=== PATIENT | male | born 1940 | race Caucasian/White ===

== ENCOUNTER 2021-08-15 09:15 | Observation (INO) | payer MEDICARE, OTHER, SELFPAY ==
[2021-08-15] VITALS (12 sets, daily range): BP systolic 137–159; BP diastolic 67–77; PULSE 61–80; RESP 16–19; TEMP 36.4–38.7; O2SAT 95–99; BMI 21.4
--- NOTE | 2021-08-15 09:17 | DI.RAD.S_ITS ---
PROCEDURE: XR CHEST 1V INDICATIONS: cough TECHNIQUE: One view of the chest was acquired. COMPARISON: [facility], CR, XR CHEST 1 VIEW, 04/28/2019, 13:23. [facility], CR, XR CHEST 1 VIEW, 03/27/2019, 22:47. [facility], CR, XR CHEST 1 VIEW, 12/25/2017, 1:51. [facility], CT, CT ANGIO CHEST ABDOMEN PELVIS, 04/28/2019, 14:20. FINDINGS: Surgical changes and devices: Epigastric clips are seen. Lungs and pleura: An incomplete inspiratory result is noted, causing a crowded appearance to the lung markings. No focal infiltrates are seen. No pneumothorax or significant pleural effusions are seen. Mediastinum: The cardiac contours are within normal limits. The aorta demonstrates calcification and tortuosity. Bones and chest wall: No suspicious bony lesions. Age-appropriate bony degenerative changes are seen. Overlying soft tissues appear unremarkable. IMPRESSION: Unremarkable portable chest, without focal infiltrates. Dictated by: Marc Ibanez M.D. on 08/15/2021 at 8:33 Approved by: Marc Ibanez M.D. on 08/15/2021 at 8:34
--- NOTE | 2021-08-15 09:20 | ED_ITS ---
HPI - Altered Mental Status General Chief Complaint: Neuro Symptoms/Deficit Stated Complaint: Diabetic with altered mental status Time Seen by Provider: 08/15/21 09:25 History of Present Illness HPI narrative: Patient brought in by ambulance from home. called to inform that patient had fallen yesterday and again this morning. Has been confused this morning. Last well known 9:00 a.m. last night. No slurred speech facial droop or limb weakness. Patient is not at baseline according to when EMS gave us report. Patient is diabetic. Blood sugar by EMS was elevated. Patient able to state his full name and date of . Blood sugar 397. Otherwise no recent illness reported to EMS by . Patient was diverted here from [place] because local hospital there was on diversion. Patient denies any head pain neck pain back pain abdominal pain chest pain or limb pain from his falls. Patient states only hurts on his right finger from the blood glucose done by the EMS crew. Patient in no distress. Does follow instructions.. Is not oriented to day or time or location. Difficulty with urine catheter. Related Data Home Medications Medication Instructions Recorded Confirmed amlodipine 5 mg tablet 5 mg PO DAILY 08/15/21 08/15/21 atorvastatin 10 mg tablet 10 mg PO DAILY 08/15/21 08/15/21 citalopram 20 mg tablet 20 mg PO DAILY 08/15/21 08/15/21 loperamide 2 mg capsule 2 mg PO DAILY PRN 08/15/21 08/15/21 (Anti-Diarrheal (loperamide)) memantine 10 mg tablet 10 mg PO BID 08/15/21 08/15/21 omeprazole 20 mg capsule,delayed 20 mg PO DAILY 08/15/21 08/15/21 release prazosin 1 mg capsule 1 mg PO DAILY 08/15/21 08/15/21 quetiapine 25 mg tablet 12.5 mg PO BEDTIME 08/15/21 08/15/21 rivastigmine tartrate 1.5 mg 3 mg PO DAILY 08/15/21 08/15/21 capsule aspirin 81 mg tablet,delayed 81 mg PO DAILY 08/16/21 08/16/21 release cyanocobalamin (vitamin B-12) 100 100 mcg PO DAILY 08/16/21 08/16/21 mcg tablet insulin glargine 100 unit/mL (3 20 unit SUBCUT BEDTIME 08/16/21 08/16/21 mL) subcutaneous pen (Lantus Solostar U-100 Insulin) iron-vit C-vit Q85-xwcov acid 100 1 tab PO Q OTHER DAY 08/16/21 08/16/21 mg-250 mg-25 mcg-1 mg tablet (Iron) [id number] 5 cap PO TIDWMEAL 08/16/21 08/16/21 6,000-19,000-30,000 unit capsule,delayed rel (Creon) Previous Rx's Medication Instructions Recorded amoxicillin 875 mg-potassium 1 tab PO BID #14 tab 08/17/21 clavulanate 125 mg tablet (Augmentin) Allergies Allergy/AdvReac Type Severity Reaction Status Date / Time No Known Drug Allergies Allergy Verified 08/15/21 09:42 Review of Systems Review of Systems Narrative: GENERAL: Denies chills, fatigue, malaise, fever, sweats. HEENT: Denies sinus pain, ear pain, sore throat RESPIRATORY: Denies dyspnea, cough CARDIOVASCULAR: Denies chest pain, palpitations GASTROINTESTINAL: Denies nausea, vomiting, abdominal pain : Denies dysuria, frequency, hematuria MUSCULOSKELETAL: denies muscle or bony pain SKIN: Denies rash, skin lesions NEUROLOGIC: Denies weakness, numbness, negative slurred speech or facial droop, is confused to time and place and event Psych: Is not combative. ROS Unobtainable: All systems reviewed & are unremarkable except as noted in HPI and below Patient History Social History (System 08/15/21 @ 09:42 by Juanita Stern) household members: spouse Smoking Status: Never smoker alcohol intake: never Exam Narrative Exam Narrative: GENERAL: in no distress, not toxic not dyspneic HEAD: Normocephalic. Atraumatic, nontender face and skull, no skin injury. EYES: Pupils equal round No scleral icterus. ENT: Mucous membranes dry. No intraoral injury. NECK: Trachea midline. No midline tenderness of the cervical spine. CARDIOVASCULAR: Regular rate and rhythm without murmurs RESPIRATORY: Clear to auscultation. Breath sounds equal bilaterally. No wheezes, rales, or rhonchi. GASTROINTESTINAL: Abdomen soft, non-tender EXTREMITIES: No gross deformities. Grossly nontender bilateral shoulders elbows wrists pelvis hips knees and ankles. BACK: No flank tenderness. NEURO: Awake and alert and oriented to self and date of only. Clear speech. No facial droop light touch intact to bilateral face hands and legs. Able to follow commands and tube handler equally and raises both legs. SKIN: Warm and dry PSYCH: Not anxious, is cooperative, not combative Initial Vital Signs Initial Vital Signs: Vital Signs Temperature 101.6 F H 08/15/21 09:18 Pulse Rate 80 08/15/21 09:18 Respiratory Rate 18 08/15/21 09:18 Blood Pressure 157/74 H 08/15/21 09:18 Pulse Oximetry 99 08/15/21 09:18 Course Course Course Narrative: Daughter at bedside. Mary. She is a nurse. Reviewed with her results with patient. Liver enzymes are at baseline. Does agree for admit. IV antibiotics and fever control. 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 Has bouts of elevated enzymes for the liver with fever in the past. Patient is full code Orders Ordered: Discontinued Medications Acetaminophen (Acetaminophen 325 Mg Tablet) 650 mg PO Q6HR PRN PRN Reason: Fever/Mild Pain (1-3) Last Admin: 08/16/21 21:02 Dose: 650 mg Documented by: Admin: 08/15/21 23:25 Dose: 650 mg Documented by: DHARA Lipase/Protease/Amylase (Lipase/Protease/Amylase 12/20/23 Cap) 5 cap PO TIDWM [facility] Last Admin: 08/17/21 12:12 Dose: 5 cap Documented by: Admin: 08/17/21 08:32 Dose: 5 cap Documented by: Admin: 08/16/21 17:02 Dose: 5 cap Documented by: Admin: 08/16/21 12:10 Dose: 5 cap Documented by: Admin: 08/16/21 08:26 Dose: 5 cap Documented by: Admin: 08/15/21 17:10 Dose: 5 cap Documented by: DHARA Aspirin (Aspirin Ec 81 Mg Tablet) 81 mg PO DAILY [facility] Last Admin: 08/17/21 10:11 Dose: 81 mg Documented by: Admin: 08/16/21 08:26 Dose: 81 mg Documented by: JOSE Atorvastatin Calcium (Atorvastatin 20 Mg Tablet) 10 mg PO BEDTIME [facility] Last Admin: 08/16/21 21:00 Dose: 10 mg Documented by: Admin: 08/15/21 23:26 Dose: 10 mg Documented by: DHARA Bisacodyl (Bisacodyl 10 Mg Supp) 10 mg [place] BID PRN PRN Reason: Constipation Citalopram Hydrobromide (Citalopram 10 Mg Tablet) 20 mg PO DAILY [facility] Last Admin: 08/17/21 10:12 Dose: 20 mg Documented by: Admin: 08/16/21 08:26 Dose: 20 mg Documented by: JOSE Dextrose (Dextrose 50 % In Water 25 Gm/50 Ml Syringe) 25 gm IV PRN PRN; Protocol PRN Reason: Hypoglycemia Enoxaparin Sodium (Enoxaparin 40 Mg/0.4 Ml Syringe) 40 mg SUBCUT DAILY [facility] Last Admin: 08/17/21 10:13 Dose: 40 mg Documented by: Admin: 08/16/21 08:27 Dose: 40 mg Documented by: JOSE Haloperidol (Haloperidol 5 Mg/Ml Vial) 1 mg IV NOW ONE Stop: 08/15/21 14:44 Last Admin: 08/15/21 14:46 Dose: 1 mg Documented by: SHAYY Sodium Chloride (Normal Saline 0.9%) 1,000 mls @ 1,000 mls/hr IV BOLUS ONE Stop: 08/15/21 14:09 Last Infusion: 08/15/21 15:49 Dose: 0 mls/hr Documented by: Admin: 08/15/21 13:49 Dose: 1,000 mls/hr Documented by: PIOTR Piperacillin Sod/Tazobactam (Sod 4.5 gm/ Sodium Chloride) 100 mls @ 200 mls/hr IV NOW ONE Stop: 08/15/21 13:17 Last Infusion: 08/15/21 14:40 Dose: 0 mls/hr Documented by: Admin: 08/15/21 13:49 Dose: 200 mls/hr Documented by: PIOTR Lactated Ringer's (Lactated Ringers) 1,000 mls @ 100 mls/hr IV CONT [facility] Last Admin: 08/16/21 11:33 Dose: 100 mls/hr Documented by: Infusion: 08/16/21 11:33 Dose: 100 mls/hr Documented by: Admin: 08/16/21 01:54 Dose: 100 mls/hr Documented by: Infusion: 08/16/21 01:34 Dose: 100 mls/hr Documented by: Admin: 08/15/21 15:34 Dose: 100 mls/hr Documented by: DHARA Piperacillin Sod/Tazobactam (Sod 3.375 gm/ Sodium Chloride) 100 mls @ 25 mls/hr IV Q8H [facility] Last Infusion: 08/17/21 12:11 Dose: 0 mls/hr Documented by: Admin: 08/17/21 05:35 Dose: 25 mls/hr Documented by: Infusion: 08/17/21 03:04 Dose: 25 mls/hr Documented by: Admin: 08/16/21 23:04 Dose: 25 mls/hr Documented by: Infusion: 08/16/21 19:13 Dose: 25 mls/hr Documented by: Admin: 08/16/21 15:13 Dose: 25 mls/hr Documented by: Infusion: 08/16/21 11:29 Dose: 0 mls/hr Documented by: Admin: 08/16/21 05:39 Dose: 25 mls/hr Documented by: Infusion: 08/16/21 02:27 Dose: 25 mls/hr Documented by: Admin: 08/15/21 22:27 Dose: 25 mls/hr Documented by: MARCELO Ibuprofen (Ibuprofen 400 Mg Tablet) 400 mg PO NOW ONE Stop: 08/15/21 13:07 Last Admin: 08/15/21 13:48 Dose: 400 mg Documented by: PIOTR Influenza Virus Vaccine (Influenza Hd Vaccine 0.7 Ml Syringe) 0.7 ml IM .ONCE ONE Stop: 08/16/21 09:01 Last Admin: 08/17/21 10:12 Dose: 0.7 ml Documented by: JESI Insulin Glargine (Insulin Glargine 100 Unit/Ml 3ml Pen) 20 unit SUBCUT BEDTIME [facility] Last Admin: 08/16/21 21:02 Dose: 20 unit Documented by: MARCELO Cosigned by: ABBEY Admin: 08/15/21 21:00 Dose: Not Given Documented by: MARCELO Insulin Human Lispro (Insulin Lispro 100 Unit/Ml 3ml Vial) 0 unit SUBCUT ACHS [facility]; Protocol Last Admin: 08/17/21 11:46 Dose: 1 unit Documented by: JESI Neville by: RADHA Admin: 08/17/21 08:29 Dose: Not Given Documented by: Admin: 08/16/21 21:03 Dose: Not Given Documented by: Admin: 08/16/21 17:02 Dose: 1 unit Documented by: JESI Treadwelligned by: EN Admin: 08/16/21 12:10 Dose: 1 unit Documented by: JESI Neville by: EVERARDO Admin: 08/16/21 08:26 Dose: 1 unit Documented by: JOSE Neville by: JESI Admin: 08/15/21 21:00 Dose: Not Given Documented by: Admin: 08/15/21 17:11 Dose: 7 unit Documented by: DHARA Treadwelligned by: KASIA Insulin Human Lispro (Insulin Lispro 100 Unit/Ml 3ml Vial) 10 unit SUBCUT AC [facility] Last Admin: 08/17/21 11:45 Dose: 10 unit Documented by: JESI Neville by: RADHA Admin: 08/17/21 08:33 Dose: 10 unit Documented by: JESI Neville by: ELANA Admin: 08/16/21 17:03 Dose: 10 unit Documented by: JESI Neville by: EN Admin: 08/16/21 12:11 Dose: 10 unit Documented by: JESI Neville by: EVERARDO Admin: 08/16/21 08:27 Dose: 10 unit Documented by: JOSE Neville by: JESI Admin: 08/15/21 17:10 Dose: 10 unit Documented by: DHARA Neville by: KASIA Loperamide HCl (Loperamide 2 Mg Capsule) 2 mg PO DAILY [facility] Last Admin: 08/17/21 10:11 Dose: 2 mg Documented by: Admin: 08/16/21 08:26 Dose: 2 mg Documented by: JOSE Loperamide HCl (Loperamide 2 Mg Capsule) 2 mg PO DAILY PRN PRN Reason: Diarrhea Magnesium Hydroxide (Magnesium Hydroxide 30 Ml Udc) 30 ml PO DAILY PRN PRN Reason: Constipation Memantine (Memantine Hcl 5 Mg Tablet) 10 mg PO BID [facility] Last Admin: 08/17/21 10:11 Dose: 10 mg Documented by: Admin: 08/16/21 21:00 Dose: 10 mg Documented by: Admin: 08/16/21 08:26 Dose: 10 mg Documented by: Admin: 08/15/21 23:25 Dose: 10 mg Documented by: DHARA Ondansetron HCl (Ondansetron 4 Mg/2 Ml Inj) 4 mg IV Q8HR PRN PRN Reason: Nausea And Vomiting Pantoprazole Sodium (Pantoprazole Dr 20 Mg Tablet) 20 mg PO 0700 [facility] Last Admin: 08/17/21 06:34 Dose: 20 mg Documented by: Admin: 08/16/21 08:26 Dose: 20 mg Documented by: JOSE Prazosin HCl (Prazosin 1 Mg Capsule) 1 mg PO DAILY Pending sale to [facility] Admin: 08/17/21 10:14 Dose: 1 mg Documented by: Admin: 08/16/21 08:26 Dose: 1 mg Documented by: JOSE Quetiapine Fumarate (Quetiapine 25 Mg Tablet) 12.5 mg PO BEDTIME [facility] Last Admin: 08/16/21 21:01 Dose: 12.5 mg Documented by: Admin: 08/15/21 23:25 Dose: 12.5 mg Documented by: DHARA Sennosides (Sennosides 8.6 Mg Tablet) 17.2 mg PO BEDTIME [facility] Reevaluation(s) Reevaluation #1: Reviewed results with patient and daughter. They do agree for admit. Time: 13:22 Consultations Consultation #1: Spoke with hospitalist, dr campos, agrees for admit. Blood cultures started do wn here as well as antibiotics and fever control Time: 13:22 Vital Signs Vital signs: Vital Signs - 8 hr 08/15/21 09:18 08/15/21 12:27 08/15/21 12:30 Temperature 101.6 F H Pulse Rate 80 67 66 Respiratory Rate 18 19 17 Blood Pressure 157/74 H 141/77 H Pulse Oximetry 99 95 97 08/15/21 13:00 08/15/21 13:01 Temperature Pulse Rate 66 66 Respiratory Rate 19 17 Blood Pressure 151/72 H 149/75 H Pulse Oximetry 95 96 MDM - Altered Mental Status Differential Diagnosis Differential diagnosis: Likely altered mental status, dementia (Hepatic encephalopathy), hypoglycemia, hyponatremia, other (UTI/pneumonia/DKA) and sepsis Lab Data Result diagrams: 08/17/21 07:07 08/17/21 07:07 Labs: Lab Results 08/15/21 08/15/21 08/15/21 Range/Units 09:18 09:19 09:23 WBC (4.5-11.0) X10^3/uL RBC (4.5-5.9) X10^6/uL Hgb (13.5-17.5) g/dL Hct (41-53) % MCV (80-100) fL MCH (26-34) PG MCHC (30-36) % RDW (11.6-14.8) % Plt Count (150-400) X10^3/uL Neut % (Auto) (50-75) % Lymph % (Auto) (25-40) % [place] % (Auto) (3-14) % Eos % (Auto) (2-4) % Baso % (Auto) (0-2) % Neut # (Auto) (0361-0863) /uL Lymph # (Auto) (5814-8874) /uL [place] # (Auto) (0-900) /uL Eos # (Auto) (0-450) /uL Baso # (Auto) (0-100) /uL PT (10.1-12.7) SECONDS INR (0.9-1.3) APTT (26.4-36.2) SECONDS Sodium (137-145) mmol/L Potassium (3.4-5.1) mmol/L Chloride (98-107) mmol/L Carbon Dioxide (22-32) mmol/L BUN (9-20) mg/dL Creatinine (0.66-1.25) mg/dL Estimated GFR (>60) mL/min BUN/Creatinine Ratio (6-22) Glucose (80-110) mg/dL Hemoglobin A1c (4.0-6.0) % Lactate (0.7-2.1) mmol/L Calcium (8.4-10.2) mg/dL Iron (49-181) ug/dL TIBC (261-462) ug/dL % Saturation (20-50) % Transferrin (206-381) mg/dL Total Bilirubin (0.2-1.3) mg/dL AST (17-59) IU/L ALT (<50) IU/L Alkaline Phosphatase (38-126) U/L Ammonia (9-30) umol/L Total Creatine Kinase (55-170) U/L CK-MB (CK-2) CK-MB (CK-2) Rel Index Troponin I (0.01-0.034) ng/mL Total Protein (6.3-8.2) g/dL Albumin (3.5-5.0) g/dL Globulin (1.7-4.1) g/dL Albumin/Globulin Ratio (1.0-2.8) Procalcitonin 0.25 (<0.5) ng/mL TSH (0.47-4.68) uIU/mL Urine Color Yellow Urine Appearance Clear Urine pH 6.5 (4.5-8.0) Ur Specific [place] 1.015 (1.000-1.035) Urine Protein Negative (Negative) Urine Glucose (UA) 3+ H (Negative) g/dL Urine Ketones Negative (NEGATIVE) Urine Occult Blood Trace-intact (Negative) Urine Nitrate Negative (Negative) Urine Bilirubin Negative (NEGATIVE) Urine Urobilinogen 1.0 (0.2) E.U./dL Ur Leukocyte Esterase Negative (NEGATIVE) Urine RBC 0-1/hpf (0-5/HPF) Urine WBC 1-5/hpf (0-5/HPF) Urine Bacteria Occasional (0-1) (None) Ur Culture Indicated? Cult not indicated Ethyl Alcohol ( - 10) mg/dL Ketones (<0.27) mmol/L SARS-CoV-2 (PCR) Negative (Negative) 08/15/21 08/15/21 08/15/21 Range/Units 09:43 09:43 09:43 WBC 4.5 (4.5-11.0) X10^3/uL RBC 3.61 L (4.5-5.9) X10^6/uL Hgb 9.4 L (13.5-17.5) g/dL Hct 28.6 L (41-53) % MCV 79.3 L (80-100) fL MCH 26.0 (26-34) PG MCHC 32.8 (30-36) % RDW 16.7 H (11.6-14.8) % Plt Count 115 L (150-400) X10^3/uL Neut % (Auto) 87.7 H (50-75) % Lymph % (Auto) 5.2 L (25-40) % [place] % (Auto) 6.1 (3-14) % Eos % (Auto) 0.2 L (2-4) % Baso % (Auto) 0.8 (0-2) % Neut # (Auto) 3900 (4697-6691) /uL Lymph # (Auto) 200 L (7941-7668) /uL [place] # (Auto) 300 (0-900) /uL Eos # (Auto) 0 (0-450) /uL Baso # (Auto) 0 (0-100) /uL PT (10.1-12.7) SECONDS INR (0.9-1.3) APTT (26.4-36.2) SECONDS Sodium 135 L (137-145) mmol/L Potassium 4.3 (3.4-5.1) mmol/L Chloride 102 (98-107) mmol/L Carbon Dioxide 26 (22-32) mmol/L BUN 19 (9-20) mg/dL Creatinine 1.13 (0.66-1.25) mg/dL Estimated GFR > 60.0 (>60) mL/min BUN/Creatinine Ratio 16.8 (6-22) Glucose 334 H (80-110) mg/dL Hemoglobin A1c (4.0-6.0) % Lactate 3.1 H (0.7-2.1) mmol/L Calcium 9.4 (8.4-10.2) mg/dL Iron (49-181) ug/dL TIBC (261-462) ug/dL % Saturation (20-50) % Transferrin (206-381) mg/dL Total Bilirubin 2.0 H (0.2-1.3) mg/dL AST 549 H (17-59) IU/L ALT 230 H (<50) IU/L Alkaline Phosphatase 525 H (38-126) U/L Ammonia (9-30) umol/L Total Creatine Kinase 87 (55-170) U/L CK-MB (CK-2) TNP CK-MB (CK-2) Rel Index TNP Troponin I < 0.012 (0.01-0.034) ng/mL Total Protein 6.4 (6.3-8.2) g/dL Albumin 3.5 (3.5-5.0) g/dL Globulin 2.9 (1.7-4.1) g/dL Albumin/Globulin Ratio 1.2 (1.0-2.8) Procalcitonin (<0.5) ng/mL TSH (0.47-4.68) uIU/mL Urine Color Urine Appearance Urine pH (4.5-8.0) Ur Specific [place] (1.000-1.035) Urine Protein (Negative) Urine Glucose (UA) (Negative) g/dL Urine Ketones (NEGATIVE) Urine Occult Blood (Negative) Urine Nitrate (Negative) Urine Bilirubin (NEGATIVE) Urine Urobilinogen (0.2) E.U./dL Ur Leukocyte Esterase (NEGATIVE) Urine RBC (0-5/HPF) Urine WBC (0-5/HPF) Urine Bacteria (None) Ur Culture Indicated? Ethyl Alcohol < 10 ( - 10) mg/dL Ketones (<0.27) mmol/L SARS-CoV-2 (PCR) (Negative) 08/15/21 08/15/21 08/15/21 Range/Units 09:43 09:43 09:43 WBC (4.5-11.0) X10^3/uL RBC (4.5-5.9) X10^6/uL Hgb (13.5-17.5) g/dL Hct (41-53) % MCV (80-100) fL MCH (26-34) PG MCHC (30-36) % RDW (11.6-14.8) % Plt Count (150-400) X10^3/uL Neut % (Auto) (50-75) % Lymph % (Auto) (25-40) % [place] % (Auto) (3-14) % Eos % (Auto) (2-4) % Baso % (Auto) (0-2) % Neut # (Auto) (9400-6806) /uL Lymph # (Auto) (7722-8373) /uL [place] # (Auto) (0-900) /uL Eos # (Auto) (0-450) /uL Baso # (Auto) (0-100) /uL PT 15.2 H (10.1-12.7) SECONDS INR 1.4 H (0.9-1.3) APTT 28 (26.4-36.2) SECONDS Sodium (137-145) mmol/L Potassium (3.4-5.1) mmol/L Chloride (98-107) mmol/L Carbon Dioxide (22-32) mmol/L BUN (9-20) mg/dL Creatinine (0.66-1.25) mg/dL Estimated GFR (>60) mL/min BUN/Creatinine Ratio (6-22) Glucose (80-110) mg/dL Hemoglobin A1c (4.0-6.0) % Lactate (0.7-2.1) mmol/L Calcium (8.4-10.2) mg/dL Iron (49-181) ug/dL TIBC (261-462) ug/dL % Saturation (20-50) % Transferrin (206-381) mg/dL Total Bilirubin (0.2-1.3) mg/dL AST (17-59) IU/L ALT (<50) IU/L Alkaline Phosphatase (38-126) U/L Ammonia (9-30) umol/L Total Creatine Kinase (55-170) U/L CK-MB (CK-2) CK-MB (CK-2) Rel Index Troponin I (0.01-0.034) ng/mL Total Protein (6.3-8.2) g/dL Albumin (3.5-5.0) g/dL Globulin (1.7-4.1) g/dL Albumin/Globulin Ratio (1.0-2.8) Procalcitonin (<0.5) ng/mL TSH 1.22 (0.47-4.68) uIU/mL Urine Color Urine Appearance Urine pH (4.5-8.0) Ur Specific [place] (1.000-1.035) Urine Protein (Negative) Urine Glucose (UA) (Negative) g/dL Urine Ketones (NEGATIVE) Urine Occult Blood (Negative) Urine Nitrate (Negative) Urine Bilirubin (NEGATIVE) Urine Urobilinogen (0.2) E.U./dL Ur Leukocyte Esterase (NEGATIVE) Urine RBC (0-5/HPF) Urine WBC (0-5/HPF) Urine Bacteria (None) Ur Culture Indicated? Ethyl Alcohol ( - 10) mg/dL Ketones 0.09 (<0.27) mmol/L SARS-CoV-2 (PCR) (Negative) 08/15/21 08/15/21 08/15/21 Range/Units 09:43 09:45 11:49 WBC (4.5-11.0) X10^3/uL RBC (4.5-5.9) X10^6/uL Hgb (13.5-17.5) g/dL Hct (41-53) % MCV (80-100) fL MCH (26-34) PG MCHC (30-36) % RDW (11.6-14.8) % Plt Count (150-400) X10^3/uL Neut % (Auto) (50-75) % Lymph % (Auto) (25-40) % [place] % (Auto) (3-14) % Eos % (Auto) (2-4) % Baso % (Auto) (0-2) % Neut # (Auto) (1240-1484) /uL Lymph # (Auto) (3512-0361) /uL [place] # (Auto) (0-900) /uL Eos # (Auto) (0-450) /uL Baso # (Auto) (0-100) /uL PT (10.1-12.7) SECONDS INR (0.9-1.3) APTT (26.4-36.2) SECONDS Sodium (137-145) mmol/L Potassium (3.4-5.1) mmol/L Chloride (98-107) mmol/L Carbon Dioxide (22-32) mmol/L BUN (9-20) mg/dL Creatinine (0.66-1.25) mg/dL Estimated GFR (>60) mL/min BUN/Creatinine Ratio (6-22) Glucose (80-110) mg/dL Hemoglobin A1c 11.1 H (4.0-6.0) % Lactate (0.7-2.1) mmol/L Calcium (8.4-10.2) mg/dL Iron 36 L (49-181) ug/dL TIBC 365 (261-462) ug/dL % Saturation 10 L (20-50) % Transferrin 265 (206-381) mg/dL Total Bilirubin (0.2-1.3) mg/dL AST (17-59) IU/L ALT (<50) IU/L Alkaline Phosphatase (38-126) U/L Ammonia < 9 L (9-30) umol/L Total Creatine Kinase (55-170) U/L CK-MB (CK-2) CK-MB (CK-2) Rel Index Troponin I (0.01-0.034) ng/mL Total Protein (6.3-8.2) g/dL Albumin (3.5-5.0) g/dL Globulin (1.7-4.1) g/dL Albumin/Globulin Ratio (1.0-2.8) Procalcitonin (<0.5) ng/mL TSH (0.47-4.68) uIU/mL Urine Color Urine Appearance Urine pH (4.5-8.0) Ur Specific [place] (1.000-1.035) Urine Protein (Negative) Urine Glucose (UA) (Negative) g/dL Urine Ketones (NEGATIVE) Urine Occult Blood (Negative) Urine Nitrate (Negative) Urine Bilirubin (NEGATIVE) Urine Urobilinogen (0.2) E.U./dL Ur Leukocyte Esterase (NEGATIVE) Urine RBC (0-5/HPF) Urine WBC (0-5/HPF) Urine Bacteria (None) Ur Culture Indicated? Ethyl Alcohol ( - 10) mg/dL Ketones (<0.27) mmol/L SARS-CoV-2 (PCR) (Negative) 08/15/21 Range/Units 12:20 WBC (4.5-11.0) X10^3/uL RBC (4.5-5.9) X10^6/uL Hgb (13.5-17.5) g/dL Hct (41-53) % MCV (80-100) fL MCH (26-34) PG MCHC (30-36) % RDW (11.6-14.8) % Plt Count (150-400) X10^3/uL Neut % (Auto) (50-75) % Lymph % (Auto) (25-40) % [place] % (Auto) (3-14) % Eos % (Auto) (2-4) % Baso % (Auto) (0-2) % Neut # (Auto) (1994-1086) /uL Lymph # (Auto) (4629-2666) /uL [place] # (Auto) (0-900) /uL Eos # (Auto) (0-450) /uL Baso # (Auto) (0-100) /uL PT (10.1-12.7) SECONDS INR (0.9-1.3) APTT (26.4-36.2) SECONDS Sodium (137-145) mmol/L Potassium (3.4-5.1) mmol/L Chloride (98-107) mmol/L Carbon Dioxide (22-32) mmol/L BUN (9-20) mg/dL Creatinine (0.66-1.25) mg/dL Estimated GFR (>60) mL/min BUN/Creatinine Ratio (6-22) Glucose (80-110) mg/dL Hemoglobin A1c (4.0-6.0) % Lactate 1.6 (0.7-2.1) mmol/L Calcium (8.4-10.2) mg/dL Iron (49-181) ug/dL TIBC (261-462) ug/dL % Saturation (20-50) % Transferrin (206-381) mg/dL Total Bilirubin (0.2-1.3) mg/dL AST (17-59) IU/L ALT (<50) IU/L Alkaline Phosphatase (38-126) U/L Ammonia (9-30) umol/L Total Creatine Kinase (55-170) U/L CK-MB (CK-2) CK-MB (CK-2) Rel Index Troponin I (0.01-0.034) ng/mL Total Protein (6.3-8.2) g/dL Albumin (3.5-5.0) g/dL Globulin (1.7-4.1) g/dL Albumin/Globulin Ratio (1.0-2.8) Procalcitonin (<0.5) ng/mL TSH (0.47-4.68) uIU/mL Urine Color Urine Appearance Urine pH (4.5-8.0) Ur Specific [place] (1.000-1.035) Urine Protein (Negative) Urine Glucose (UA) (Negative) g/dL Urine Ketones (NEGATIVE) Urine Occult Blood (Negative) Urine Nitrate (Negative) Urine Bilirubin (NEGATIVE) Urine Urobilinogen (0.2) E.U./dL Ur Leukocyte Esterase (NEGATIVE) Urine RBC (0-5/HPF) Urine WBC (0-5/HPF) Urine Bacteria (None) Ur Culture Indicated? Ethyl Alcohol ( - 10) mg/dL Ketones (<0.27) mmol/L SARS-CoV-2 (PCR) (Negative) Imaging Data Chest x-ray: Radiologist's Impression: [address] [address] XRay Report Signed Patient: Oleksandr Ballard MR#: [id number] : 1940 Acct:[id number] Age/Sex: 81 / M Date of Service: 08/15/21 Loc: ED Accession Number: [id number] ?? Procedure: XR chest 1V Ordering Provider: Daniel Irby MD PROCEDURE:? XR CHEST 1V ? INDICATIONS:? cough ? TECHNIQUE:? One view of the chest was acquired.? ? COMPARISON:? [facility], CR, XR CHEST 1 VIEW, 04/28/2019, 13:23.? [facility], CR, XR CHEST 1 VIEW, 03/27/2019, 22:47.? [facility], CR, XR CHEST 1 VIEW, 12/25/2017, 1:51.? [facility], CT, CT ANGIO CHEST ABDOMEN PELVIS, 04/28/2019, 14:20. ? FINDINGS:? ? Surgical changes and devices:? Epigastric clips are seen. ? Lungs and pleura:? An incomplete inspiratory result is noted, causing a crowded appearance to the lung markings.? No focal infiltrates are seen.? No pneumothorax or significant pleural effusions are seen. ? ? Mediastinum:? The cardiac contours are within normal limits. The aorta demonstrates calcification and tortuosity. ? Bones and chest wall:? No suspicious bony lesions.? Age-appropriate bony degenerative changes are seen.? Overlying soft tissues appear unremarkable.? ? ? IMPRESSION:? Unremarkable portable chest, without focal infiltrates. ? ? Dictated by: Marc Ibanez M.D. on 08/15/2021 at 8:33 ? ? Approved by: Marc Ibanez M.D. on 08/15/2021 at 8:34 ? CT scan - abdomen/pelvis: Radiologist's Impression: [address] [address] [address] Scan Report Signed Patient: Oleksandr Ballard MR#: [id number] : 1940 Acct:[id number] Age/Sex: 81 / M Date of Service: 08/15/21 Loc: ED Accession Number: [id number] ?? Procedure: CT abdomen pelvis w con Ordering Provider: Daniel Irby MD PROCEDURE:? CT ABDOMEN PELVIS W CON ? INDICATIONS:? iv contrast only/ Abdominal pain ? TECHNIQUE:? After the administration of intravenous contrast, axial sections acquired from the lung bases to the pubic symphysis.? Coronal and sagittal reformats were performed.? For radiation dose reduction, the following was used:? automated exposure control, adjustment of mA and/or kV according to patient size.? ? [facility]? [facility] [facility], CT, CT ABDOMEN PELVIS WITH CONTRAST, 09/29/2020, 14:38. ? FINDINGS:? Image quality:? Excellent.? ? Lung bases:? Unremarkable. Heart:? No significant findings. ? ABDOMEN: Liver:? Hepatic contour is nodular, suggestive of cirrhosis. Gallbladder:? Is surgically absent? ? Biliary ducts:? Unremarkable.? ? Pancreas:? Unremarkable.? ? Spleen:? Unremarkable.? ? Adrenal Glands:? Unremarkable.? ? Kidneys and Ureters:? Severe right renal atrophy. ? Stomach and Bowel:? Stomach is grossly unremarkable.? No bowel dilatation.? There is thickened bowel within the right upper quadrant anteriorly, which appears to be large bowel.? Moderate stool within the rectum is present.? Appendix is not seen.? No evidence of appendicitis.? Peritoneum:? No abnormal intraperitoneal fluid.? No free air.? ? Ventral Wall: ? No hernias.? Abdominal Nodes:? No retroperitoneal or mesenteric adenopathy by size criteria.? Vessels:? Aorta and inferior vena cava are normal in size.? ? PELVIS: Pelvic Organs:? Unremarkable.? ? Bladder:? Unremarkable.? ? Pelvic Nodes: No enlarged lymph nodes.? Miscellaneous: No hernias are seen. ? ? ? Bones:? Unremarkable.? IMPRESSION:? 1.? Thickened bowel loops within the right upper quadrant, consistent with ischemia, infection, or inflammation.? Follow-up endoscopy is recommended to exclude underlying neoplasm. 2. Severe right renal atrophy. 3. Fecal impaction within the rectum. 4. Findings suggestive of cirrhosis. ? ? Dictated by: Medina Castellanos M.D. on 08/15/2021 at 11:13 ? ? Approved by: Medina Castellanos M.D. on 08/15/2021 at 11:17 ? CT scan - head: Radiologist's Impression: [address] [address] [address] Scan Report Signed Patient: Oleksandr Ballard MR#: [id number] : 1940 Acct:[id number] Age/Sex: 81 / M Date of Service: 08/15/21 Loc: ED Accession Number: [id number] ?? Procedure: CT head/brain wo con Ordering Provider: Daniel Irby MD PROCEDURE:? CT HEAD/BRAIN WO CON ? INDICATIONS:? confusion ? TECHNIQUE:? Noncontrast 4.5 mm thick angled axial sections acquired from the foramen magnum to the vertex, with coronal and sagittal reformats.? For radiation dose reduction, the following was used:? automated exposure control, adjustment of mA and/or kV according to patient size.? ? COMPARISON:? [facility], CT, CT HEAD WITHOUT CONTRAST, 01/16/2020, 19:12. ? FINDINGS:? Image quality:? Excellent.? ? CSF spaces:? Basal cisterns are patent.? No extra-axial fluid collections.? The ventricles are symmetric in size and shape.? ? Brain:? No intracranial bleeds or masses.? There is cerebral volume loss for age, with resultant ventricular and sulcal prominence.? There are periventricular and deep white matter chronic small vessel ischemic changes.? There is intracranial internal c arotid artery atherosclerosis.? ? Skull and face:? Calvarium and visualized facial bones appear intact, without suspicious lesions.? ? Sinuses:? Visualized sinuses and mastoids are clear.? IMPRESSION:? Stable intracranial study demonstrating brain parenchymal volume loss and chronic small vessel ischemic change ? ? Dictated by: Marc Ibanez M.D. on 08/15/2021 at 8:40 ? ? Approved by: Marc Ibanez M.D. on 08/15/2021 at 8:42 ? ECG Data Interpretation: Normal sinus rhythm rate 75 left axis deviation, prolonged QT no ST elevation or depression MDM Narrative Medical decision making narrative: Appropriate for admission. Fever noted as well as elevated lactic acid. Patient blood pressure stable. No tachycardia no hypotension. Reviewed with patient and daughter and hospitalist. Agree for admit and start antibiotics. Discharge Plan Departure Patient Disposition: Admitted As Inpatient Clinical Impression: Enteritis Admit Date/Time: 08/15/21 14:16 Admit Provider: Kobe Campos
--- NOTE | 2021-08-15 09:24 | DI.CT.S_ITS ---
PROCEDURE: CT HEAD/BRAIN WO CON INDICATIONS: confusion TECHNIQUE: Noncontrast 4.5 mm thick angled axial sections acquired from the foramen magnum to the vertex, with coronal and sagittal reformats. For radiation dose reduction, the following was used: automated exposure control, adjustment of mA and/or kV according to patient size. COMPARISON: [facility], CT, CT HEAD WITHOUT CONTRAST, 01/16/2020, 19:12. FINDINGS: Image quality: Excellent. CSF spaces: Basal cisterns are patent. No extra-axial fluid collections. The ventricles are symmetric in size and shape. Brain: No intracranial bleeds or masses. There is cerebral volume loss for age, with resultant ventricular and sulcal prominence. There are periventricular and deep white matter chronic small vessel ischemic changes. There is intracranial internal carotid artery atherosclerosis. Skull and face: Calvarium and visualized facial bones appear intact, without suspicious lesions. Sinuses: Visualized sinuses and mastoids are clear. IMPRESSION: Stable intracranial study demonstrating brain parenchymal volume loss and chronic small vessel ischemic change Dictated by: Marc Ibanez M.D. on 08/15/2021 at 8:40 Approved by: Marc Ibanez M.D. on 08/15/2021 at 8:42
[2021-08-15 09:27] LABS: COVID19 -Nasal RAPID Negative (Negative)
[2021-08-15 09:36] LABS: Appearance Urine UA CLEAR; Bilirubin Urine UA NEGATIVE (NEGATIVE); Color Urine UA YELLOW; Glucose Urine UA 3+ g/dL (Negative); Ketones Urine UA NEGATIVE (NEGATIVE); Leukocyte Esterase Urine UA NEGATIVE (NEGATIVE); Nitrite Urine UA NEGATIVE (Negative); Occult Blood Urine UA TRACE-INTACT (Negative); Protein Urine UA NEGATIVE (Negative); Specific Gravity Urine UA 1.015 (1.000-1.035); pH Urine UA 6.5 (4.5-8.0)
[2021-08-15 09:49] LABS: Bacteria Urine Occasional (0-1); Culture Indicated Urine Cult Not Indicated; RBC Urine 0-1/HPF (0-5/HPF); WBC Urine 1-5/HPF (0-5/HPF)
[2021-08-15 09:54] LABS: Add Manual Diff / Slide Review NO; Basophils Absolute Auto 0 /uL (0-100); Basophils Percent Auto 0.8 % (0-2); Eosinophils Absolute Auto 0 /uL (0-450); Eosinophils Percent Auto 0.2 % (2-4); Hematocrit 28.6 % (41-53); Hemoglobin 9.4 g/dL (13.5-17.5); Lymphocytes Absolute Auto 200 /uL (1100-4500); Lymphocytes Percent Auto 5.2 % (25-40); Mean Corpuscular HGB Conc 32.8 % (30-36); Mean Corpuscular Volume 79.3 fL (80-100); Monocytes Absolute Auto 300 /uL (0-900); Monocytes Percent Auto 6.1 % (3-14); Neutrophils Absolute Auto 3900 /uL (1500-7000); Neutrophils Percent Auto 87.7 % (50-75); Platelet Count 115 X10^3/uL (150-400); Red Blood Cell Count 3.61 X10^6/uL (4.5-5.9); Red Cell Distribution Width 16.7 % (11.6-14.8); White Blood Cell Count 4.5 X10^3/uL (4.5-11.0)
[2021-08-15 10:11] LABS: Alanine Aminotransferase 230 IU/L (<50); Albumin 3.5 g/dL (3.5-5.0); Albumin Globulin Ratio 1.2 (1.0-2.8); Alkaline Phosphatase 525 U/L (38-126); Aspartate Aminotransferase 549 IU/L (17-59); BUN Creatinine Ratio 16.8 (6-22); Blood Urea Nitrogen 19 mg/dL (9-20); Calcium 9.4 mg/dL (8.4-10.2); Carbon Dioxide 26 mmol/L (22-32); Chloride 102 mmol/L (98-107); Creatine Kinase 87 U/L (55-170); Estimated Glomerular Filt Rate > 60.0 mL/min (>60); Ethanol (ETOH) < 10 mg/dL; Globulin 2.9 g/dL (1.7-4.1); Glucose 334 mg/dL (80-110); HEMOLYSIS < 15 (0-50); Lactate (Lactic Acid) 3.1 mmol/L (0.7-2.1); Potassium 4.3 mmol/L (3.4-5.1); Sodium 135 mmol/L (137-145); Total Protein 6.4 g/dL (6.3-8.2)
[2021-08-15 10:13] LABS: Ketones (Beta-Hydroxybutyrate) 0.09 mmol/L (<0.27)
[2021-08-15 10:22] LABS: Troponin I < 0.012 ng/mL (0.01-0.034)
[2021-08-15 10:25] LABS: INR 1.4 (0.9-1.3); Prothrombin Time 15.2 SECONDS (10.1-12.7)
[2021-08-15 10:27] LABS: PTT Partial Thromboplastin Tim 28 SECONDS (26.4-36.2)
[2021-08-15 10:48] LABS: Thyroid Stimulating Hormone 1.22 uIU/mL (0.47-4.68)
--- NOTE | 2021-08-15 10:56 | DI.CT.S_ITS ---
PROCEDURE: CT ABDOMEN PELVIS W CON INDICATIONS: iv contrast only/ Abdominal pain TECHNIQUE: After the administration of intravenous contrast, axial sections acquired from the lung bases to the pubic symphysis. Coronal and sagittal reformats were performed. For radiation dose reduction, the following was used: automated exposure control, adjustment of mA and/or kV according to patient size. COMPARISON: [facility], CT, CT ABDOMEN PELVIS WITH CONTRAST, 09/29/2020, 14:38. FINDINGS: Image quality: Excellent. Lung bases: Unremarkable. Heart: No significant findings. ABDOMEN: Liver: Hepatic contour is nodular, suggestive of cirrhosis. Gallbladder: Is surgically absent Biliary ducts: Unremarkable. Pancreas: Unremarkable. Spleen: Unremarkable. Adrenal Glands: Unremarkable. Kidneys and Ureters: Severe right renal atrophy. Stomach and Bowel: Stomach is grossly unremarkable. No bowel dilatation. There is thickened bowel within the right upper quadrant anteriorly, which appears to be large bowel. Moderate stool within the rectum is present. Appendix is not seen. No evidence of appendicitis. Peritoneum: No abnormal intraperitoneal fluid. No free air. Ventral Wall: No hernias. Abdominal Nodes: No retroperitoneal or mesenteric adenopathy by size criteria. Vessels: Aorta and inferior vena cava are normal in size. PELVIS: Pelvic Organs: Unremarkable. Bladder: Unremarkable. Pelvic Nodes: No enlarged lymph nodes. Miscellaneous: No hernias are seen. Bones: Unremarkable. IMPRESSION: 1. Thickened bowel loops within the right upper quadrant, consistent with ischemia, infection, or inflammation. Follow-up endoscopy is recommended to exclude underlying neoplasm. 2. Severe right renal atrophy. 3. Fecal impaction within the rectum. 4. Findings suggestive of cirrhosis. Dictated by: Medina Castellanos M.D. on 08/15/2021 at 11:13 Approved by: Medina Castellanos M.D. on 08/15/2021 at 11:17
[2021-08-15 11:50] LABS: Reflexed Lactate in 2 Hours Y
[2021-08-15 12:20] LABS: Ammonia (NH3) < 9 umol/L (9-30)
[2021-08-15 13:04] LABS: Lactate 2HR (Lactic Acid Rflx) 1.6 mmol/L (0.7-2.1)
[2021-08-15] MEDS: IBUPROFEN 400 MG TABLET PO (13:48)
[2021-08-15] MEDS: SODIUM CHLORIDE 0.9% 1,000 ML 1000 ML IV (13:49)
[2021-08-15] MEDS: PIPERACILLIN/TAZO 4.5 GM in SODIUM CHLORIDE 0.9% 100 ML 200 ML IV (13:49)
--- NOTE | 2021-08-15 14:40 | PC.NURSE ---
Pt attempting to get out of bed. Repositioned w/o success. Dr. Campos aware of agitation. Orders pending.
[2021-08-15] MEDS: HALOPERIDOL 5 MG/ML VIAL 1 MG IV (14:46)
--- NOTE | 2021-08-15 14:59 | PC.NURSE ---
Patient tried to get out of bed. . Nurse entered to redirect patient. This [employer] BREAK[employer]OOK was requested to come in and assist. The patient was pulling off blankets and throwing them to the floor. Removed all cords for vitals, as well. Everything removed from patient. Last vital set was stable. IV in arm was covered with coban as patient was trying to pull that out, as well. Left patient sitting with feet up for comfort.
--- NOTE | 2021-08-15 15:21 | PM.HP.1 ---
History of Present Illness History of Present Illness Date Patient Seen: 08/15/21 Time Patient Seen: 14:00 Chief complaint: Diabetic with altered mental status Narrative: Patient is an 81-year-old male with history of dementia with behavioral disturbance, insulin-dependent diabetes, hypertension and hyperlipidemia, history of Whipple procedure, cirrhosis with chronic elevated LFTs brought in to ED by family after he woke up this morning confused. Also noted was he had fallen yesterday and again this morning. In the ER he had a rectal temp of 101.6?. Patient is completely confused and unable to provide any helpful history himself. Daughter was present in the emergency department when seen by ED physician but not available at time of this exam. Patient does deny abdominal pain, nausea or vomiting or diarrhea but again is not a reliable historian. As noted he had fever in the ED. His blood pressure initial was 159/75, pulse of 63, respirations 17. He has an elevated lactate of 3.1. His WBC is normal without left shift. He is anemic with hemoglobin 9.4 and hematocrit 28.6 with MCV 79.3. His lytes and renal function are normal. He had abnormal values on LFTs with bilirubin of 2.0, AST 549, ALT 230, alkaline phosphatase 525. His ammonia level was less than 9. His glucose was 334 with negative ketones. Urinalysis negative for bacteria or leukocytes. His COVID PCR was negative as well. On imaging he has a normal chest x-ray. Head CT shows chronic small-vessel ischemic change without acute findings. His abdomen and pelvis CT scan showed thickened large bowel loops in the right upper quadrant, severe right renal atrophy, findings suggestive of cirrhosis and moderate stool within the rectum. Bowels were not dilated. Social history: Unable to obtain other than apparently lives at home with spouse. Family history: Unable to obtain Meds Home Medications and Allergies Allergies Allergy/AdvReac Type Severity Reaction Status Date / Time No Known Drug Allergies Allergy Verified 08/15/21 09:42 Review of Systems Review of Systems Narrative: Unable to obtain further due to patient's altered mental status. Exam Vital Signs (past 8 hours): - 08/15/21 09:18 08/15/21 12:27 08/15/21 12:30 Temperature 101.6 F H Pulse Rate 80 67 66 Respiratory Rate 18 19 17 Blood Pressure 157/74 H 141/77 H Pulse Oximetry 99 95 97 08/15/21 13:00 08/15/21 13:01 08/15/21 13:29 Temperature Pulse Rate 66 66 63 Respiratory Rate 19 17 16 Blood Pressure 151/72 H 149/75 H Pulse Oximetry 95 96 97 08/15/21 13:30 Temperature Pulse Rate Respiratory Rate Blood Pressure 159/75 H Pulse Oximetry Oxygen Delivery Method Room Air Narrative Exam Narrative: General: Alert well-developed well-nourished male who is clearly confused and restless pulling at lines and bed sheets. HEENT: Nontraumatic, pupils equal bilaterally, face symmetric Neck: No lymphadenopathy, no nuchal rigidity Lungs: Clear to auscultation Heart: Normal S1 and S2, regular rate and rhythm without murmur Abdomen: Nondistended, soft and nontender to deep palpation, no abdominal mass Extremities: Nonedematous Neurological: Oriented to person only, speech is disorganized without dysarthria, unable to fully cooperate with exam but moving all 4 extremities well Skin: No acute appearing rash Objective Labs Result Diagrams: 08/15/21 09:43 08/15/21 09:43 Labs: Laboratory Results - last 24 hr 08/15/21 08/15/21 08/15/21 09:19 09:23 09:43 WBC 4.5 RBC 3.61 L Hgb 9.4 L Hct 28.6 L MCV 79.3 L MCH 26.0 MCHC 32.8 RDW 16.7 H Plt Count 115 L Neut % (Auto) 87.7 H Lymph % (Auto) 5.2 L Petroleum % (Auto) 6.1 Eos % (Auto) 0.2 L Baso % (Auto) 0.8 Neut # (Auto) 3900 Lymph # (Auto) 200 L Petroleum # (Auto) 300 Eos # (Auto) 0 Baso # (Auto) 0 PT INR APTT Sodium Potassium Chloride Carbon Dioxide BUN Creatinine Estimated GFR BUN/Creatinine Ratio Glucose Lactate Calcium Total Bilirubin AST ALT Alkaline Phosphatase Ammonia Total Creatine Kinase CK-MB (CK-2) CK-MB (CK-2) Rel Index Troponin I Total Protein Albumin Globulin Albumin/Globulin Ratio TSH Urine Color Yellow Urine Appearance Clear Urine pH 6.5 Ur Specific [place] 1.015 Urine Protein Negative Urine Glucose (UA) 3+ H Urine Ketones Negative Urine Occult Blood Trace-intact Urine Nitrate Negative Urine Bilirubin Negative Urine Urobilinogen 1.0 Ur Leukocyte Esterase Negative Urine RBC 0-1/hpf Urine WBC 1-5/hpf Urine Bacteria Occasional (0-1) Ur Culture Indicated? Cult not indicated Ethyl Alcohol Ketones SARS-CoV-2 (PCR) Negative 08/15/21 08/15/21 08/15/21 09:43 09:43 09:43 WBC RBC Hgb Hct MCV MCH MCHC RDW Plt Count Neut % (Auto) Lymph % (Auto) Petroleum % (Auto) Eos % (Auto) Baso % (Auto) Neut # (Auto) Lymph # (Auto) Petroleum # (Auto) Eos # (Auto) Baso # (Auto) PT INR APTT Sodium 135 L Potassium 4.3 Chloride 102 Carbon Dioxide 26 BUN 19 Creatinine 1.13 Estimated GFR > 60.0 BUN/Creatinine Ratio 16.8 Glucose 334 H Lactate 3.1 H Calcium 9.4 Total Bilirubin 2.0 H AST 549 H ALT 230 H Alkaline Phosphatase 525 H Ammonia Total Creatine Kinase 87 CK-MB (CK-2) TNP CK-MB (CK-2) Rel Index TNP Troponin I < 0.012 Total Protein 6.4 Albumin 3.5 Globulin 2.9 Albumin/Globulin Ratio 1.2 TSH 1.22 Urine Color Urine Appearance Urine pH Ur Specific [place] Urine Protein Urine Glucose (UA) Urine Ketones Urine Occult Blood Urine Nitrate Urine Bilirubin Urine Urobilinogen Ur Leukocyte Esterase Urine RBC Urine WBC Urine Bacteria Ur Culture Indicated? Ethyl Alcohol < 10 Ketones SARS-CoV-2 (PCR) 08/15/21 08/15/21 08/15/21 09:43 09:43 11:49 WBC RBC Hgb Hct MCV MCH MCHC RDW Plt Count Neut % (Auto) Lymph % (Auto) Petroleum % (Auto) Eos % (Auto) Baso % (Auto) Neut # (Auto) Lymph # (Auto) Petroleum # (Auto) Eos # (Auto) Baso # (Auto) PT 15.2 H INR 1.4 H APTT 28 Sodium Potassium Chloride Carbon Dioxide BUN Creatinine Estimated GFR BUN/Creatinine Ratio Glucose Lactate Calcium Total Bilirubin AST ALT Alkaline Phosphatase Ammonia < 9 L Total Creatine Kinase CK-MB (CK-2) CK-MB (CK-2) Rel Index Troponin I Total Protein Albumin Globulin Albumin/Globulin Ratio TSH Urine Color Urine Appearance Urine pH Ur Specific [place] Urine Protein Urine Glucose (UA) Urine Ketones Urine Occult Blood Urine Nitrate Urine Bilirubin Urine Urobilinogen Ur Leukocyte Esterase Urine RBC Urine WBC Urine Bacteria Ur Culture Indicated? Ethyl Alcohol Ketones 0.09 SARS-CoV-2 (PCR) 08/15/21 12:20 WBC RBC Hgb Hct MCV MCH MCHC RDW Plt Count Neut % (Auto) Lymph % (Auto) Petroleum % (Auto) Eos % (Auto) Baso % (Auto) Neut # (Auto) Lymph # (Auto) Petroleum # (Auto) Eos # (Auto) Baso # (Auto) PT INR APTT Sodium Potassium Chloride Carbon Dioxide BUN Creatinine Estimated GFR BUN/Creatinine Ratio Glucose Lactate 1.6 Calcium Total Bilirubin AST ALT Alkaline Phosphatase Ammonia Total Creatine Kinase CK-MB (CK-2) CK-MB (CK-2) Rel Index Troponin I Total Protein Albumin Globulin Albumin/Globulin Ratio TSH Urine Color Urine Appearance Urine pH Ur Specific [place] Urine Protein Urine Glucose (UA) Urine Ketones Urine Occult Blood Urine Nitrate Urine Bilirubin Urine Urobilinogen Ur Leukocyte Esterase Urine RBC Urine WBC Urine Bacteria Ur Culture Indicated? Ethyl Alcohol Ketones SARS-CoV-2 (PCR) Assessment & Plan Assessment & Plan narrative: 1. Febrile illness, present on admission, active -patient presents confused from baseline with a fever in the ED, he does not appear overtly septic -COVID PCR negative, normal WBC without left shift, elevated LFTs which by history may be chronic, normal urinalysis -lactate of 3.1, repeat pending -chest x-ray normal -CT shows thickened large bowel loop in the right upper quadrant without bowel dilatation or other acute findings -source of fever is not clear, although he has thickened loop of bowel in the abdomen this may be a red montanez as he denies abdominal pain and his abdominal exam is benign -exam is also not supportive of acute meningitis though that is in differential -blood cultures x2 obtained in ED -continue Zosyn started in the ED for empiric bowel coverage -IV fluids -diet as tolerated -obtain respiratory panel PCR -CBC, CMP in a.m. 2. Insulin-dependent diabetes -glucose over 300 in ED -check hemoglobin A1c -continue patient's Lantus and short-acting insulin regimen plus medium dose sliding scale -monitor for hypoglycemia 3. Acute metabolic encephalopathy -patient is reportedly confused from baseline and has underlying dementia with behavioral disturbance, appears to be on low-dose Seroquel at night and topical Haldol per med list provided in the ED -patient at high risk for increased confusion and agitation -provide sitter if available -may use IV or IM Haldol judiciously if patient is at risk to self or others 4. Elevated LFTs, chronic versus acute -patient has elevated bilirubin, alk-phos and transaminases, appearance of cirrhosis on CT, and history of Whipple procedure -previous records not available -repeat LFTs in a.m. and try to obtain past records if possible 5. Anemia, chronic versus acute -has moderate anemia with hemoglobin 9.4, hematocrit 28.6 unknown acuity but more likely chronic -patient is on oral B12 replacement -check iron profile, ferritin and B12 6. Dementia with behavioral disturbance -continue routine medications I have left a message for patient's daughter Mary to contact me so we can get more information about his health history, medications, code status, etc.. Code status: Unable to verify DPOA: Unable to verify DVT prophylaxis: Enoxaparin Time Spent With Patient Critical Care time: I spent a total of [] minutes of critical care time on this patient's care today; this time is exclusive of procedural time.
[2021-08-15] MEDS: LACTATED RINGERS 1,000 ML 100 ML IV (15:34)
[2021-08-15 15:48] LABS: Hemoglobin A1C% w Est Avg Glu 11.1 % (4.0-6.0)
[2021-08-15 16:00] LABS: Procalcitonin 0.25 ng/mL (<0.5)
[2021-08-15 16:38] LABS: HEMOLYSIS < 15 (0-50); Iron 36 ug/dL (49-181)
[2021-08-15 16:49] LABS: Percent Iron Saturation 10 % (20-50); Total Iron Binding Capacity 365 ug/dL (261-462); Transferrin 265 mg/dL (206-381)
[2021-08-15] MEDS: INSULIN LISPRO 100 UNIT/ML 3ML VIAL 10 UNIT SUBCUT (17:10)
[2021-08-15] MEDS: LIPASE/PROTEASE/AMYLASE 5/17/24 CAP 5 CAP PO (17:10)
[2021-08-15] MEDS: INSULIN LISPRO 100 UNIT/ML 3ML VIAL SUBCUT (17:11)
[2021-08-15 17:16] LABS: Ferritin 51 ng/mL (18-464)
[2021-08-15 17:31] LABS: Vitamin B12 990 pg/mL (239-931)
[2021-08-15 18:26] LABS: Adenovirus Not Detected (Not Detect); B. parapertussis Not Detected (Not Detecte); Bordetella pertussis Not Detected (Not Detecte); Chlamydophila pneumoniae Not Detected (Not Detect); Coronavirus 229E Not Detected (Not Detect); Coronavirus HKU1 Not Detected (Not Detect); Coronavirus NL 63 Not Detected (Not Detect); Coronavirus OC43 Not Detected (Not Detect); Human Metapneumovirus Not Detected (Not Detect); Human Rhinovirus/Enterovirus Not Detected (Not Detect); Influenza A Not Detected (Not Detect); Influenza B Not Detected (Not Detect); Mycoplasma pneumoniae Not Detected (Not Detect); Parainfluenza Virus 1 Not Detected (Not Detect); Parainfluenza Virus 2 Not Detected (Not Detect); Parainfluenza Virus 3 Not Detected (Not Detect); Parainfluenza Virus 4 Not Detected (Not Detect); Respiratory Syncytial Virus Not Detected (Not Detect); SARS- CoV-2 Not Detected (Not Detecte)
[2021-08-15] MEDS: PIPERACILLIN/TAZO 3.375 GM in SODIUM CHLORIDE 0.9% 100 ML 25 ML IV (22:27)
[2021-08-15] MEDS: MEMANTINE HCL 5 MG TABLET 10 MG PO (23:25)
[2021-08-15] MEDS: ACETAMINOPHEN 325 MG TABLET 650 MG PO (23:25)
[2021-08-15] MEDS: QUETIAPINE 25 MG TABLET 12.5 MG PO (23:25)
[2021-08-15] MEDS: ATORVASTATIN 20 MG TABLET 10 MG PO (23:26)
[2021-08-16] VITALS (9 sets, daily range): BP systolic 131–147; BP diastolic 54–75; PULSE 50–67; RESP 16–18; TEMP 35.6–37.3; O2SAT 95–98
[2021-08-16] MEDS: LACTATED RINGERS 1,000 ML 100 ML IV ×2 (01:54→11:33)
[2021-08-16] MEDS: PIPERACILLIN/TAZO 3.375 GM in SODIUM CHLORIDE 0.9% 100 ML 25 ML IV ×3 (05:39→23:04)
[2021-08-16] MEDS: MEMANTINE HCL 5 MG TABLET 10 MG PO ×2 (08:26→21:00)
[2021-08-16] MEDS: CITALOPRAM 10 MG TABLET 20 MG PO (08:26)
[2021-08-16] MEDS: ASPIRIN EC 81 MG TABLET PO (08:26)
[2021-08-16] MEDS: INSULIN LISPRO 100 UNIT/ML 3ML VIAL SUBCUT ×3 (08:26→17:02)
[2021-08-16] MEDS: PANTOPRAZOLE DR 20 MG TABLET PO (08:26)
[2021-08-16] MEDS: PRAZOSIN 1 MG CAPSULE PO (08:26)
[2021-08-16] MEDS: LIPASE/PROTEASE/AMYLASE 5/17/24 CAP 5 CAP PO ×3 (08:26→17:02)
[2021-08-16] MEDS: LOPERAMIDE 2 MG CAPSULE PO (08:26)
[2021-08-16] MEDS: ENOXAPARIN 40 MG/0.4 ML SYRINGE SUBCUT (08:27)
[2021-08-16] MEDS: INSULIN LISPRO 100 UNIT/ML 3ML VIAL 10 UNIT SUBCUT ×3 (08:27→17:03)
--- NOTE | 2021-08-16 10:13 | PC.NURSE ---
Addendum entered by Jennifer Mckeon R.N. 08/16/21 18:49: Resting comfortably and denies pain Original Note: 0850- Patient got up to use the bathroom on his own as he is impulsive. He was trying to go to the restroom, attached to iv. Bed alarm was on, and patients non skid socks. Ortho PA Blayne Perry, and JONA Fink heard patient fall and went into the room to help him up. Patient was sitting on his bottom, and states that he did hit his head. No swelling noted, or any other injuries. Will watch for swelling and pain to the back of patients head. He states that he is not having any visual issues. aware of patients fall, and she will assess patient soon. He does have advanced stage dementia. Daughter who is and RN is now in patients room visiting and she is aware of patients fall. He denies any pain or discomfort and is in bed and watching television. No complaints of abdominal pain.
[2021-08-16 12:01] LABS: Add Manual Diff / Slide Review NO; Basophils Absolute Auto 100 /uL (0-100); Basophils Percent Auto 1.3 % (0-2); Eosinophils Absolute Auto 100 /uL (0-450); Eosinophils Percent Auto 1.7 % (2-4); Hemoglobin 9.2 g/dL (13.5-17.5); Lymphocytes Absolute Auto 500 /uL (1100-4500); Lymphocytes Percent Auto 13.3 % (25-40); Mean Corpuscular HGB Conc 31.9 % (30-36); Mean Corpuscular Hemoglobin 25.6 PG (26-34); Mean Corpuscular Volume 80.2 fL (80-100); Monocytes Absolute Auto 300 /uL (0-900); Monocytes Percent Auto 7.3 % (3-14); Neutrophils Absolute Auto 2900 /uL (1500-7000); Neutrophils Percent Auto 76.4 % (50-75); Platelet Count 107 X10^3/uL (150-400); Red Blood Cell Count 3.61 X10^6/uL (4.5-5.9); Red Cell Distribution Width 16.9 % (11.6-14.8); White Blood Cell Count 3.8 X10^3/uL (4.5-11.0)
[2021-08-16 12:19] LABS: Alanine Aminotransferase 166 IU/L (<50); Albumin Globulin Ratio 1.1 (1.0-2.8); Alkaline Phosphatase 432 U/L (38-126); Aspartate Aminotransferase 220 IU/L (17-59); BUN Creatinine Ratio 11.8 (6-22); Blood Urea Nitrogen 12 mg/dL (9-20); Calcium 9.1 mg/dL (8.4-10.2); Carbon Dioxide 30 mmol/L (22-32); Chloride 103 mmol/L (98-107); Estimated Glomerular Filt Rate > 60.0 mL/min (>60); Globulin 2.7 g/dL (1.7-4.1); Glucose 156 mg/dL (80-110); HEMOLYSIS < 15 (0-50); Potassium 3.7 mmol/L (3.4-5.1); Sodium 136 mmol/L (137-145); Total Protein 5.7 g/dL (6.3-8.2)
[2021-08-16 12:33] LABS: Procalcitonin 0.47 ng/mL (<0.5)
--- NOTE | 2021-08-16 17:30 | DIET.PN1 ---
Dietary Progress Note Assessment: 81 y/o M c h/o dementia, T2Dm, HTN, HLD, and weight loss surgery. Screening this pt due to elevated hgA1c. His daughter Mary was present and reports her mother has a difficult time managing Oleksandr's blood sugars. Upon review of freestyle marcell, prior to admission BG were consistently between 200-500 mg/dL. Mary expressed that her mother worries quite a bit about hypoglycemia if BG are below 200. She tells me that his OP endo has also recommended BG goal of <180 mg/dL. Mary also reports her parents are foodies. Reports frequent eating out, ie pizza, pasta. Also high carb breakfasts with oatmeal, raisins, milk or cereal. Overall, she describes frequent high carb intake. Recent hgA1c of 11.1%. Fairly good coverage with current insulin regimen while admitted and CCD. Recent B, 67L, 136, 141 Seems likely that his hyperglycemia is due to 's fear of lows, inadequate insulin coverage at home, and current high carb diet at home. Denies any significant weight loss recently. Perhaps -5# since May. Mary seems to think he is not losing weight currently. Nutrition focused physical exam does not indicate significant muscle wasting. Some weight loss may be r/t hyperglycemia? Current DM medications: Lispro 10u ac TID, Lantus 20u HS, SSI Home DM medications reported: Lispro 11u ac TID, Lanuts 10u HS Ht: 177.8 cm Wt: 68 kg BMI: 21.4 UBW: 64-68kg reported Last BM: 08/16/21 (08/16/21 09:37) MNA: 9 Jaspal Score: 20 Diet: 08/15/21 Dinner Carbohydrate Consistent Diet Diet Modifications: Carbohydrate level: Medium (3 CHO) Nutrition Percent Meal Consumed 100% 08/16/21 09:37 Percent Meal Consumed 25% 08/15/21 18:00 Labs: RBC 3.61 X10^6/uL (4.5-5.9) L 08/16/21 11:46 Hgb 9.2 g/dL (13.5-17.5) L 08/16/21 11:46 Hct 29.0 % (41-53) L 08/16/21 11:46 Creatinine 1.02 mg/dL (0.66-1.25) 08/16/21 11:46 Hemoglobin A1c 11.1 % (4.0-6.0) H 08/15/21 09:45 Lactate 1.6 mmol/L (0.7-2.1) 08/15/21 12:20 Iron 36 ug/dL (49-181) L 08/15/21 09:43 % Saturation 10 % (20-50) L 08/15/21 09:43 Ferritin 51 ng/mL (18-464) 08/15/21 15:55 Nutrition Diagnosis: Altered nutrition related value r/t excessive carb intake and inadequate insulin coverage at home aeb HgA1c of 11.1% Interventions: Continue CCD and current insulin regimen. Provided my card for OP DSME prn. Discussed Bg goals given age and dementia. Mary verbally agreed and will relay contact info to her mother. Monitoring/Evaluations: consult prn Electronically Signed by: Samina Marquez 08/16/21 17:30 Clinical Dietitian [address] [address]
--- NOTE | 2021-08-16 18:04 | CM.DANOTE ---
DCP/Assessment: Reviewed chart. Patient is a 81yr old male admitted to [facility] with ALOC. PCP listed is Dr. Hinkle. Primary payor is 1)Medicare 2)[employer]. Met with patient this AM. Patient with h/o dementia and no family in room at time of visit. RN notified to contact CM team when family arrive. Received call indicating daughter/Mary arrived. Met with patient and daughter in room. Daughter reports that she is a retired RN and patient's DPOA. Patient resides with his spouse whom does not have dementia and can be stubborn related to patient's care outside the hospital. Daughter requesting patient go home with home health for PT/OT/RN/DIGITAL EDITOR. Daughter concerned about both parents and their rodent exterminator planning. Daughter indicates that she has taken 'baby steps in getting more accomplished related to their care. Recently all carpet removed from the residence to assist in preventing falls. Daughter reports patient has had several falls within the last year. DIGITAL EDITOR spoke with Dr. Smart and requested that she touch base with daughter while she is here. P.T. evaluation ordered and F2F signed for home health. First agency choice is [facility] Daughter reports that they have used them before. Daughter hopeful spouse will be in agreement to have someone come in. Encouraged daughter to discuss with Dr. Smart and request that possibly provider could talk with spouse on daughter's cell phone in room? Daughter unsure if that will help. Notified daughter that CM team would follow up with her for safe d/c planning. Patient is not a good candidate for SNF given his dementia. Patient sitting up in chair and daughter reports he is moving quite well. P: Home with home health through [facility] if spouse in agreement. KJS Discharge Planning/Care Management Advanced directive, confirm from FAMILY Start: 08/15/21 16:53 Freq: Q24H Status: Active Protocol: Document 08/15/21 17:55 AKP (Rec: 08/15/21 17:55 AKP [id number]) Advance Directive, confirm on record Time 17:55 Person contacted daughter brougt in Copy received Yes Advanced directive available on record Yes CM Discharge Assessment Start: 08/16/21 17:56 Freq: Status: Active Protocol: Document 08/16/21 17:57 KJS (Rec: 08/16/21 18:04 KJS [id number]) Discharge Planning Assessment Assigned Choker Hooker YOKASTA Chowdhury Contact Information Mary Silvestre (daughter) ph# [phone] Advance Directives? Yes Advance Directives on File Yes History Provided By Patient,Family Member Prior Living Arrangements House Household Members spouse,caregiver Type of transporation used prior to Relies on Others admit Independent with ADL's Yes Is patient alert and oriented? No: Dementia Needs Assistance With Meal Prep,Managing Medications ,Home Chores / Shopping Caregiver for Another No Patient/Family Preference Home with Home Health Barriers to Discharge No Discharge Plan Home Transportation Arrangement [facility] to provide transport. Additional Comment Daughter requesting home health through [facility]. P.T evaluation pending. Whiteboard Updated in Patient Room with Yes name and ext. # of Choker Hooker Review Status In Process Next Review Type Continued Stay Review
--- NOTE | 2021-08-16 18:44 | P.PN_ITS ---
Subjective Subjective Date Patient Seen: 08/16/21 Interval history: 81-year-old male with a history dementia, status post Whipple procedure for pancreatic cancer, multiple pancreatic stents placed, admitted to the hospital for fever following a fall. The patient today according to his daughter is essentially back to baseline. He has had no further fever. He was able to eat without difficulty. Patient does not appear to be any in any distress. Exam Vital Signs (past 8 hours): - 08/16/21 11:00 08/16/21 15:00 Temperature 96.1 F L 97.1 F L Pulse Rate 61 65 Respiratory Rate 16 16 Blood Pressure 131/75 140/68 Pulse Oximetry 97 96 Oxygen Delivery Method Room Air Oxygen Flow Rate 0 Narrative Exam Narrative: Pleasant elderly gentleman sitting in a chair in no obvious distress Resp Other: Lungs clear to auscultation Cardio Other: Cardiac exam: Regular rate and rhythm normal S1-S2 GI Other: Abdomen: Soft, nontender, nondistended, no palpable masses no rebound tenderness Extrem Other: No edema Objective Labs Result Diagrams: 08/16/21 11:46 08/16/21 11:46 Labs: Laboratory Results - last 24 hr 08/16/21 08/16/21 11:46 11:46 WBC 3.8 L RBC 3.61 L Hgb 9.2 L Hct 29.0 L MCV 80.2 MCH 25.6 L MCHC 31.9 RDW 16.9 H Plt Count 107 L Neut % (Auto) 76.4 H Lymph % (Auto) 13.3 L [place] % (Auto) 7.3 Eos % (Auto) 1.7 L Baso % (Auto) 1.3 Neut # (Auto) 2900 Lymph # (Auto) 500 L [place] # (Auto) 300 Eos # (Auto) 100 Baso # (Auto) 100 Sodium 136 L Potassium 3.7 Chloride 103 Carbon Dioxide 30 BUN 12 Creatinine 1.02 Estimated GFR > 60.0 BUN/Creatinine Ratio 11.8 Glucose 156 H D Calcium 9.1 Total Bilirubin 1.0 AST 220 H ALT 166 H Alkaline Phosphatase 432 H Total Protein 5.7 L Albumin 3.0 L Globulin 2.7 Albumin/Globulin Ratio 1.1 Procalcitonin 0.47 [facility] Social History (System 08/15/21 @ 09:42 by Juanita Stern) household members: spouse and caregiver Smoking Status: Never smoker alcohol intake: never Assessment & Plan Assessment & Plan narrative: Febrile illness, present on admission, active -patient presents confused from baseline with a fever in the ED, he does not appear overtly septic -COVID PCR negative, normal WBC without left shift, elevated LFTs which by history may be chronic, normal urinalysis -lactate of 3.1, repeat pending -chest x-ray normal -CT shows thickened large bowel loop in the right upper quadrant without bowel dilatation or other acute findings -source of fever is not clear, although he has thickened loop of bowel in the abdomen this may be a red montanez as he denies abdominal pain and his abdominal exam is benign -exam is also not supportive of acute meningitis though that is in differential -blood cultures x2 obtained in ED -continue Zosyn started in the ED for empiric bowel coverage -IV fluids -diet as tolerated -obtain respiratory panel PCR -CBC, CMP in a.m. - AST 220, down from 549, ALT 166 down from 230, alk-phos 432 down from 525 -patient has had several episodes with stent malfunction, however after discussing with the daughter she would not like to pursue aggressive treatment. At this point suspect fever likely related to his biliary tract -will continue IV antibiotics, the patient remains afebrile discharge home on oral antibiotic -will continue to monitor LFTs closely 2. Insulin-dependent diabetes -glucose over 300 in ED -check hemoglobin A1c -continue patient's Lantus and short-acting insulin regimen plus medium dose sliding scale -monitor for hypoglycemia 3. Acute metabolic encephalopathy -patient is reportedly confused from baseline and has underlying dementia with behavioral disturbance, appears to be on low-dose Seroquel at night and topical Haldol per med list provided in the ED -patient at high risk for increased confusion and agitation -provide sitter if available -may use IV or IM Haldol judiciously if patient is at risk to self or others -improving 4. Elevated LFTs, chronic versus acute -patient has elevated bilirubin, alk-phos and transaminases, appearance of cirrhosis on CT, and history of Whipple procedure -previous records not available -repeat LFTs in a.m. and try to obtain past records if possible -LFTs improved, will continue to follow 5.? Anemia, chronic versus acute -has moderate anemia with hemoglobin 9.4, hematocrit 28.6 unknown acuity but more likely chronic -patient is on oral B12 replacement -check iron profile, ferritin and B12 6. Dementia with behavioral disturbance -continue routine medications Anticipate discharge home tomorrow if no fever Time Spent With Patient Critical Care time: I spent a total of [] minutes of critical care time on this patient's care today; this time is exclusive of procedural time.
[2021-08-16] MEDS: ATORVASTATIN 20 MG TABLET 10 MG PO (21:00)
[2021-08-16] MEDS: QUETIAPINE 25 MG TABLET 12.5 MG PO (21:01)
[2021-08-16] MEDS: ACETAMINOPHEN 325 MG TABLET 650 MG PO (21:02)
[2021-08-16] MEDS: INSULIN GLARGINE 100 UNIT/ML 3ML PEN 20 UNIT SUBCUT (21:02)
[2021-08-17 00:50] VITALS: BP 142/76; PULSE 66; RESP 18; TEMP 36.7; O2SAT 97
[2021-08-17 03:00] VITALS: O2SAT 98
[2021-08-17 03:51] VITALS: BP 153/83; PULSE 57; RESP 17; O2SAT 98
[2021-08-17] MEDS: PIPERACILLIN/TAZO 3.375 GM in SODIUM CHLORIDE 0.9% 100 ML 25 ML IV (05:35)
[2021-08-17] MEDS: PANTOPRAZOLE DR 20 MG TABLET PO (06:34)
[2021-08-17 07:45] LABS: Add Manual Diff / Slide Review NO; Basophils Absolute Auto 100 /uL (0-100); Basophils Percent Auto 1.5 % (0-2); Eosinophils Absolute Auto 100 /uL (0-450); Eosinophils Percent Auto 3.1 % (2-4); Hematocrit 29.3 % (41-53); Hemoglobin 9.4 g/dL (13.5-17.5); Lymphocytes Absolute Auto 800 /uL (1100-4500); Lymphocytes Percent Auto 20.3 % (25-40); Mean Corpuscular Hemoglobin 25.5 PG (26-34); Mean Corpuscular Volume 79.4 fL (80-100); Monocytes Absolute Auto 300 /uL (0-900); Monocytes Percent Auto 8.5 % (3-14); Neutrophils Absolute Auto 2600 /uL (1500-7000); Neutrophils Percent Auto 66.6 % (50-75); Platelet Count 117 X10^3/uL (150-400); Red Blood Cell Count 3.69 X10^6/uL (4.5-5.9); Red Cell Distribution Width 16.9 % (11.6-14.8); White Blood Cell Count 3.9 X10^3/uL (4.5-11.0)
[2021-08-17 07:59] LABS: Alanine Aminotransferase 136 IU/L (<50); Albumin Globulin Ratio 1.1 (1.0-2.8); Alkaline Phosphatase 391 U/L (38-126); Aspartate Aminotransferase 125 IU/L (17-59); BUN Creatinine Ratio 9.8 (6-22); Bilirubin Total 0.6 mg/dL (0.2-1.3); Blood Urea Nitrogen 12 mg/dL (9-20); Calcium 9.1 mg/dL (8.4-10.2); Carbon Dioxide 31 mmol/L (22-32); Chloride 105 mmol/L (98-107); Estimated Glomerular Filt Rate 56.9 mL/min (>60); Globulin 2.8 g/dL (1.7-4.1); Glucose 127 mg/dL (80-110); HEMOLYSIS < 15 (0-50); Sodium 138 mmol/L (137-145); Total Protein 5.8 g/dL (6.3-8.2)
[2021-08-17] MEDS: LIPASE/PROTEASE/AMYLASE 5/17/24 CAP 5 CAP PO ×2 (08:32→12:12)
[2021-08-17] MEDS: INSULIN LISPRO 100 UNIT/ML 3ML VIAL 10 UNIT SUBCUT ×2 (08:33→11:45)
--- NOTE | 2021-08-17 08:46 | PM.DS.1 ---
History of Present Illness History of Present Illness Date Patient Seen: 08/17/21 Chief complaint: Diabetic with altered mental status Narrative: Patient is an 81-year-old male with history of dementia with behavioral disturbance, insulin-dependent diabetes, hypertension and hyperlipidemia, history of Whipple procedure, cirrhosis with chronic elevated LFTs brought in to ED by family after he woke up this morning confused.? Also noted was he had fallen yesterday and again this morning.? In the ER he had a rectal temp of 101.6?.? Patient is completely confused and unable to provide any helpful history himself.? Daughter was present in the emergency department when seen by ED physician but not available at time of this exam.? Patient does deny abdominal pain, nausea or vomiting or diarrhea but again is not a reliable historian. As noted he had fever in the ED.? His blood pressure initial was 159/75, pulse of 63, respirations 17.? He has an elevated lactate of 3.1.? His WBC is normal without left shift.? He is anemic with hemoglobin 9.4 and hematocrit 28.6 with MCV 79.3.? His lytes and renal function are normal.? He had abnormal values on LFTs with bilirubin of 2.0, AST 549, ALT 230, alkaline phosphatase 525.? His ammonia level was less than 9.? His glucose was 334 with negative ketones.? Urinalysis negative for bacteria or leukocytes.? His COVID PCR was negative as well. On imaging he has a normal chest x-ray.? Head CT shows chronic small-vessel ischemic change without acute findings.? His abdomen and pelvis CT scan showed thickened large bowel loops in the right upper quadrant, severe right renal atrophy, findings suggestive of cirrhosis and moderate stool within the rectum.? Bowels were not dilated. Social history: Unable to obtain other than apparently lives at home with spouse. Family history:? Unable to obtain Discharge Providers Provider Date of admission: 08/15/21 14:16 Discharge Date: 08/17/21 Primary care physician: Thai Hinkle MD Consults: 08/16/21 16:24 Consult to Physical Therapy Evaluate & Treat Comment: Physician Instructions: Evaluate and Treat Discharge provider: Viv Smart MD Summary Hospital Course Discharge Diagnosis: 1. Febrile illness, etiology unclear, suspected biliary source 2. Alzheimer's dementia 3. Type 2 diabetes 4. Hypertension 5. Hyperlipidemia 6. History of Whipple 7. Cirrhosis Hospital Course: The patient is a 81-year-old male who was admitted to the hospital for febrile illness. Unfortunately due to his memory deficit he was unable to provide much history. The patient was started on IV fluids and IV antibiotics. At no time did he have any complaints of abdominal pain. Overall his symptoms improved. He was more awake and alert. Less confused. His labs were remarkable for improved liver function tests. His white count remained normal at 3.9, globin 9.4, hematocrit 29.3. The patient's liver function tests improved, his AST on admission was 549, improved to 125, ALT 230, improved to 136, alk-phos 525, improved to 391. Patient was [id number] negative. He was awake sitting in a chair eating breakfast. He had no specific complaints. A the patient had a fall prior to admission he will be evaluated by physical therapy. Assuming he passes PT assessment plans are underway for discharge home. Status at Discharge Cognitive/behavioral status at discharge: at baseline, confused Functional status at discharge: uses cane/walker Overall status at discharge: patient is progressing back to baseline Exam Vital Signs (past 8 hours): - 08/17/21 00:50 08/17/21 03:00 08/17/21 03:51 Temperature 98.1 F Pulse Rate 66 57 L Respiratory Rate 18 17 Blood Pressure 142/76 H 153/83 H Pulse Oximetry 97 98 98 Oxygen Delivery Method Room Air Oxygen Flow Rate 0 Narrative Exam Narrative: Pleasant elderly male sitting in a chair in no obvious distress Resp Other: Lungs clear to auscultation Cardio Other: Cardiac exam: Regular rate and rhythm normal S1-S2 2/6 systolic ejection murmur GI Other: Abdomen soft nontender nondistended Extrem Other: Extremity no edema Objective Labs Result Diagrams: 08/17/21 07:07 08/17/21 07:07 Labs: Laboratory Results - last 24 hr 08/16/21 08/16/21 08/17/21 11:46 11:46 07:07 WBC 3.8 L 3.9 L RBC 3.61 L 3.69 L Hgb 9.2 L 9.4 L Hct 29.0 L 29.3 L MCV 80.2 79.4 L MCH 25.6 L 25.5 L MCHC 31.9 32.0 RDW 16.9 H 16.9 H Plt Count 107 L 117 L Neut % (Auto) 76.4 H 66.6 Lymph % (Auto) 13.3 L 20.3 L [place] % (Auto) 7.3 8.5 Eos % (Auto) 1.7 L 3.1 Baso % (Auto) 1.3 1.5 Neut # (Auto) 2900 2600 Lymph # (Auto) 500 L 800 L [place] # (Auto) 300 300 Eos # (Auto) 100 100 Baso # (Auto) 100 100 Sodium 136 L Potassium 3.7 Chloride 103 Carbon Dioxide 30 BUN 12 Creatinine 1.02 Estimated GFR > 60.0 BUN/Creatinine Ratio 11.8 Glucose 156 H D Calcium 9.1 Total Bilirubin 1.0 AST 220 H ALT 166 H Alkaline Phosphatase 432 H Total Protein 5.7 L Albumin 3.0 L Globulin 2.7 Albumin/Globulin Ratio 1.1 Procalcitonin 0.47 08/17/21 07:07 WBC RBC Hgb Hct MCV MCH MCHC RDW Plt Count Neut % (Auto) Lymph % (Auto) [place] % (Auto) Eos % (Auto) Baso % (Auto) Neut # (Auto) Lymph # (Auto) [place] # (Auto) Eos # (Auto) Baso # (Auto) Sodium 138 Potassium 4.0 Chloride 105 Carbon Dioxide 31 BUN 12 Creatinine 1.22 Estimated GFR 56.9 L BUN/Creatinine Ratio 9.8 Glucose 127 H Calcium 9.1 Total Bilirubin 0.6 AST 125 H ALT 136 H Alkaline Phosphatase 391 H Total Protein 5.8 L Albumin 3.0 L Globulin 2.8 Albumin/Globulin Ratio 1.1 Procalcitonin [facility] Social History (System 08/15/21 @ 09:42 by Juanita Stern) household members: spouse and caregiver Smoking Status: Never smoker alcohol intake: never Discharge Assessment & Plan Assessment and Plan Assessment: 1. Acute febrile illness, probable biliary in origin 2. Dementia 3. History of cirrhosis 4. History of will pull procedure 5. Hypertension 6. Type 2 diabetes Plan of Treatment: Discharge home Discharge Plan Discharge Plan Patient Disposition: Home Discharge orders & Medications Prescriptions: New amoxicillin-pot clavulanate [Augmentin] 875-125 mg tablet 1 tab PO BID Qty: 14 0RF Continued quetiapine 25 mg tablet 12.5 mg PO BEDTIME 0RF rivastigmine tartrate 1.5 mg capsule 3 mg PO DAILY 0RF loperamide [Anti-Diarrheal (loperamide)] 2 mg Capsule 2 mg PO DAILY PRN (Reason: Constipation) 0RF atorvastatin 10 mg tablet 10 mg PO DAILY 0RF prazosin 1 mg capsule 1 mg PO DAILY 0RF amlodipine 5 mg tablet 5 mg PO DAILY 0RF citalopram 20 mg tablet 20 mg PO DAILY 0RF omeprazole 20 mg capsule,delayed release(DR/EC) 20 mg PO DAILY 0RF memantine 10 mg tablet 10 mg PO BID 0RF cyanocobalamin (vitamin B-12) 100 mcg Tablet 100 mcg PO DAILY 0RF Iron 100 Plus [id number] so-ok-opr-mg Tablet 1 tab PO Q OTHER DAY 0RF aspirin [Adult Aspirin EC Low Strength] 81 mg Tablet,Delayed Release (Dr/Ec) 81 mg PO DAILY 0RF Lantus Solostar U-100 Insulin 100 unit/mL (3 mL) insulin pen 20 unit SUBCUT BEDTIME 0RF Creon 6,000-19,000 -30,000 unit Capsule,Delayed Release(Dr/Ec) 5 cap PO TIDWMEAL 0RF Follow up/Referrals: Thai Hinkle MD [Primary Care Provider] - Discharge Data Primary Care Provider: Thai Hinkle Attending Provider: Kobe Campos
[2021-08-17 09:00] VITALS: BP 153/79; PULSE 98; RESP 16; TEMP 36.1; O2SAT 98
--- NOTE | 2021-08-17 09:30 | PT.IIE ---
Physical Therapy Inpatient Evaluation/Re-Eval M1 PT/OT-IP Prior Functional Status Start: 08/17/21 13:39 Freq: NEEDED Status: Active Protocol: Document 08/17/21 09:30 AB (Rec: 08/17/21 13:53 [email or web address]) Medical Review Prior Functional Status Medical History Reviewed Yes Communication able to make needs known but with confusion Mobility and Gait pt stated that he is modified independent with ambulation without AD; daughter came in midway PT session and stated that pt uses a FWW for ambulation Social History Household Members spouse Living Arrangements House Number of Floors (Floors) Two Floors Number of Stairs To Enter/Railing? pt stays on main level of the house has 3 steps R rail to enter the house Home Equipment Front Wheel Walker Additional Social History Comment pt unable to provide much home set up information M2 PT-IP Current Condition Start: 08/17/21 13:39 Freq: NEEDED Status: Active Protocol: Document 08/17/21 09:30 AB (Rec: 08/17/21 13:53 [email or web address]) Physical Therapy Current Condition Current Condition Evaluation Date 08/17/21 Treatment Diagnosis enteritis; dementia; difficulty in walking Onset Date 08/15/20 M3 PT-IP Subjective Start: 08/17/21 13:39 Freq: NEEDED Status: Active Protocol: Document 08/17/21 09:30 AB (Rec: 08/17/21 13:53 [email or web address]) Subjective Physical Therapy Visit Type Type Initial Evaluation Visit Start Time 09:30 Visit Stop Time 09:57 Total Visit Minutes 27 Number of RFID TECHNICIAN Visits 0 Physical Therapy Visit Comments Patient Comments agreeable to do PT Therapy Pain Assessment Pain When Pain Assessed At Rest Pain Present Pain Present Pain Reported Location Abdomen Scale Used pain scale not stated Pain Management Techniques Distraction M4 PT-IP Mobility and Gait Start: 08/17/21 13:39 Freq: NEEDED Status: Active Protocol: Document 08/17/21 09:30 AB (Rec: 08/17/21 13:53 [email or web address]) PT-Bed Mobility Assessment Supine to Sit Supine to Sit Standby Assistance PT-Transfer Assessment Sit to and From Stand Sit to and from Stand Contact Guard Assistance,1 Person Assistance,Use of Upper Extremities Equipment Transfer Assistive Device Gait Belt,Front Wheeled Walker Orthotic/Prosthetic Devices or Brace: No Transfers Transfer Destination Chair Transfer Technique ambulate Transfer Ability Level of Assist Contact Guard Assistance, Minimal Assistance,1 Person Assistance,Use of Upper Extremities Comments Mobility Comments pt completed supine to sit SBA . able to sit on EOB SBA. pt with confusion but able to follow one step instructions but with repetitions needed. completed sit to stand CGA and ambulated in room using FWW ~ 30 ft CGA to min A. pt tends to move FWW too far forward. pt agreed to ambulate out in the hallway and ambulated ~ 200 ft using FWW SBA to occasional min A for safety and maneuvering of FWW. pt completed up/down steps CGA initially using B rails and used R rail ascending on 2nd set. pt ambulated back to his room using FWW CGA to min A. Daughter in room. pt agreed to sit on chair. positioned on chair. chair alarm on. call light and table placed within reach. Left pt with daughter. Gait Assessment Gait Gait Assistance Required: Contact Guard Assist,Minimum Assistance Distance (Feet) 200 Able to Maintain Weight Bearing Status Yes During Gait Assistive Devices Assistive Device Gait Belt,Front Wheeled Walker Orthotic/Prosthetic Devices or Brace: No Gait Deviations General Gait Pattern Decreased Stride Length, Decreased Feet Clearance Factors Limiting Gait Function Factors Limiting Gait Function Decreased Activity Tolerance, Decreased Strength,Difficulty Following Directions,Poor Balance,Poor Safety Awareness Stair Climbing Assessment Evaluation Level of Assist On Stairs Contact Guard Assistance Devices Stair Climbing Assistive Devices Left Railing,Right Railing Technique/Endurance Stair Climbing Direction Ascend and Descend Stair Climbing Technique Step to Step Number of Steps Climbed 3 Query Text: Stair Climbing Set # Repetitions (reps) 2 Comments Stair Climbing Comments pls refer to mobility section for details PT-Balance Assessment Sitting Balance and Reactions Static Sitting Balance Ability Good Dynamic Sitting Balance Ability Good Standing Balance and Reactions Static Standing Balance Ability Fair Dynamic Standing Balance Ability Fair Device Used FWW M5 PT-IP Objective Assessments Start: 08/17/21 13:39 Freq: NEEDED Status: Active Protocol: Document 08/17/21 09:30 AB (Rec: 08/17/21 13:53 AB [email or web address]) Orientation Orientation/Cognition Level of Alertness Confusional State Orientation Name Safety Awareness Decreased Safety Awareness Memory Description Short Term Impaired Gross Range of Motion Lower Extremity ROM Assessment Within Functional Limits Strength Lower Extremity Strength Assessment Within Functional Limits Coordination Assessment Gross Coordination Gross Coordination WNL Muscle Tone Muscle Tone WNL Yes M6 PT-IP Treatment Start: 08/17/21 13:39 Freq: NEEDED Status: Active Protocol: Document 08/17/21 09:30 AB (Rec: 08/17/21 13:53 AB [email or web address]) Physical Therapy Treatment Education Education Provided Safety M7 PT-IP Assessment and Plan Start: 08/17/21 13:39 Freq: NEEDED Status: Active Protocol: Document 08/17/21 09:30 AB (Rec: 08/17/21 13:53 AB [email or web address]) PT Summary Assessment and Plan Potential Rehabilitation Potential Good Status of Condition at Evaluation Stable Summary Impairments Pain,ROM,Strength,Balance, Coordination,Cognition,Bed Mobility,Transfers,Gait, Activity Tolerance Assessment Summary pt requiring CGA to min A with mobility and will have family at home to assist him. pt with dx of dementia affecting safety awareness and functional independence. pt may go home with assist at home. Goals Bed Mobility Goal Independent Transfer Goal Standby Assistance,Front Wheeled Walker Gait Goal Standby Assistance,Front Wheel Walker Gait Distance 300 Other Goals up/down 3 steps R rail ascending SBA Days to Meet Goals 3 Frequency of Treatment Frequency Of Treatment Once a Day Treatment Plan Physical Therapy Treatment Plan Bed Mobility Training,Transfer Training,Gait Training, Therapeutic Exercise,Balance Retraining,Discharge Planning, Neuromuscular Re-ed, Coordination Retraining Precautions Other Precautions falls Recommendations To Nursing Amount of Assist Needed 1 Person Assist Discharge Recommendations PT Discharge Recommendations Home with 24/ Assist Available Transportation Needs at Discharge Private Vehicle
[2021-08-17 10:00] VITALS: O2SAT 95
[2021-08-17] MEDS: ASPIRIN EC 81 MG TABLET PO (10:11)
[2021-08-17] MEDS: LOPERAMIDE 2 MG CAPSULE PO (10:11)
[2021-08-17] MEDS: MEMANTINE HCL 5 MG TABLET 10 MG PO (10:11)
[2021-08-17] MEDS: CITALOPRAM 10 MG TABLET 20 MG PO (10:12)
[2021-08-17] MEDS: INFLUENZA HD VACCINE 0.7 ML SYRINGE IM (10:12)
[2021-08-17] MEDS: ENOXAPARIN 40 MG/0.4 ML SYRINGE SUBCUT (10:13)
[2021-08-17] MEDS: PRAZOSIN 1 MG CAPSULE PO (10:14)
--- NOTE | 2021-08-17 11:30 | PC.NURSE ---
Patient extremely anxious and setting off his bed alarm this am. Daughter Mary is here now and walking with her Dad in the halls. Given flu injection in the l.arm and patient tolerated this well. His blood sugar is 128 today and insulin given. He is getting ready for lunch now and then will be discharged home.
[2021-08-17] MEDS: INSULIN LISPRO 100 UNIT/ML 3ML VIAL SUBCUT (11:46)
--- NOTE | 2021-08-17 15:28 | CM.DPNOTE ---
DC Note Home w/dtr and [facility] today Placed call to [facility] per family request. Gave referral to Jennifer and faxed face sheet, H+P, completed and signed F2F, HH order and DC Summary. F/u scheduled for next week, latest will be end of next week for HH RN/PT/OT/[employer]. Requested that Jennifer place call to patient's family to discuss expected wait time for HH services to begin and Jennifer stated this is protocol for any new referral JW
== END 2021-08-17 14:46 | disposition home or self-care (01) ==
LOC: ED 13:32 → AC 14:33
PROVIDERS: Internal Medicine; Admitting Provider Internal Medicine; Emergency Provider Emergency Medicine; Family Provider Family Medicine; PCP Internal Medicine; Referring Provider Emergency Medicine; Visit Provider Internal Medicine
DX: R41.82 Altered mental status, unspecified (principal); E11.9 Type 2 diabetes mellitus without complications; Z79.4 Long term (current) use of insulin; I10 Essential (primary) hypertension; E78.5 Hyperlipidemia, unspecified; W19.XXXA Unspecified fall, initial encounter; Z91.81 History of falling; G30.9 Alzheimer's disease, unspecified; F02.80 Dementia in other diseases classified elsewhere, unspecified severity, without behavioral disturbance, psychotic disturbance, mood disturbance, and anxiety; K74.60 Unspecified cirrhosis of liver; R50.9 Fever, unspecified; D64.9 Anemia, unspecified; R94.5 Abnormal results of liver function studies; F02.81 Dementia in other diseases classified elsewhere, unspecified severity, with behavioral disturbance; G93.41 Metabolic encephalopathy; Z20.822 Contact with and (suspected) exposure to COVID-19
CPT/HCPCS: 36415; 70450; 71045; 74177; 80053; 80320; 81001; 82009; 82140; 82550; 82607; 82728; 82962; 83036; 83540; 83550; 83605; 84145; 84443; 84484; 85025; 85610; 85730; 87040; 87633; 87635; 90471; 90662; 93005; 93010; 94760; 96361; 96365; 96366; 96372; 96375; 97161; 99284; C9803; G0378; A9270; J1630; J1650; J1815; J2543; Q9967